=== PATIENT | male | born 1940 | race Caucasian/White ===

== ENCOUNTER → 2019-12-02 | Outpatient (CLI) | payer OTHER ==
[~2019-12-02] MED LIST: ADVIL PM CAPLE1 EACH PO; ASA81BEC PO; ASTAXANTHIN4 MG PO; B-12250 MCG PO; BISACODYL SUPP10 MG PO; CENTRUM SILVER1 EAC4 PO; CEPHALEXIN; CILOSTAZOL 100100 MG PO; CO Q-10400 MG PO; CO-ENZYME Q-1010 MG PO; COSAMIN ASU CA1 EACH PO; CRESTOR; CRESTOR10 MG PO; CRESTOR5 MG PO; DULCOLAX5 MG PO; EMERGEN-C 1,01000 MG PO; EZETIMIBE; FISH OIL 1,0001 EAC9 PO; FISH OIL 1,2001 EAC1 PO; FLOMAX0.4 MG PO; FOLIC ACID; HYALURONIC ACI1 EACH PO; HYDROCODON-ACE1 EAC7 PO; IBUPROFEN 200200 M1 PO; IRON18 M1 PO; KRILL OIL 3001 EACH PO; KRILL OIL500 MG PO; LISINOPRIL; LISINOPRIL20 MG PO; LOSARTAN POTAS100 MG PO; MIRALAX119 GM PO; MOTRIN 600 MG600 M1 PO; NICOTINAMIDE PO; NORCO 5-325 TA1 EACH PO; PERCOCET 5-3251 EACH PO; PLAVIX 75 MG TA75 M1 PO; PREVACID DIS; PREVACID30 MG PO; PROTONIX40 M2 PO; PTEROSTILBENE PO; SENNA-DOCUSATE1 EACH PO; SPIRONOLACTONE25 MG PO; SUPER B COMPLE1 EAC2 PO; VITAMIN B-121000 MC2 PO; ZETIA10 MG PO; ZOFRAN ODT4 MG PO; [UNRECOGNIZED DRUG - OTHER] PO
== END ==
LOC: LAB 09:31
PROVIDERS: ATTEND Student in an Organized Health Care Education/Training Program
DX: Z01.812 Encounter for preprocedural laboratory examination (principal); Z11.59 Encounter for screening for other viral diseases

== ENCOUNTER → 2019-12-16 | Outpatient (CLI) | payer OTHER ==
[~2019-12-16] VITALS: Ht 167.6 cm; Wt 72.6 kg
--- NOTE | ~2019-12-16 | P ---
[facility] [place] [address] PROCEDURE REPORT Name: TERELL CASTELLANOS JR Room #: REG Lester Noriega#: [id number] Admission: 12/16/19 Attend Phys: Pop Urena Discharge: Date of : 40 Report #: [id number] THIS REPORT FOR: cc: Lissy Vuong, Pop Joseph MD ~ CC: Pop Vuong DATE OF SERVICE: 12/16/2019 PROCEDURE PERFORMED: Esophagoscopy with ablation of Lord's esophagus. HISTORY OF PRESENT ILLNESS: The patient is a 79-year-old male who underwent a routine followup EGD for Lord's esophagus history on 10/24/2019 by myself in 8 cm segment of Lord's was again noted. Random biopsies were obtained every 2 cm. 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 We therefore discussed potentially proceeding with ablation in the office on followup 11/08/2019. The patient agrees. He presents today for his first ablation. He is on Protonix on a daily basis. He denies any heartburn or dysphagia. He has been holding his aspirin and Plavix for the last 5 days. DESCRIPTION OF PROCEDURE: The risks and benefits of the procedure were explained to the patient, those risks including but not limited to bleeding, perforation, the risk of sedation. He understood these risks and gave informed consent. Sedation was given using propofol per anesthesia. Next, using a standard Olympus upper endoscope, the scope was placed in the patient's mouth and advanced under direct vision through the esophagus, stomach and into the second portion of the duodenum. The larynx was normal in appearance. The upper esophagus was normal. Again in the mid to distal esophagus, a long segment of Lord's was noted from 30-38 cm. No evidence of inflammation. Upon entering the stomach, a large hiatal hernia was once again noted. Overall, the gastric mucosa was normal. The pylorus was normal and patent. The duodenal bulb, first and second portion were normal. The scope was then brought back up into the patient's mid esophagus and the esophagus was irrigated with 1% Mucomyst mixed with water solution. This was then aspirated away. The scope was then withdrawn and over the channel electrode ablation device was attached. The scope was reintroduced into the patient's esophagus and the Lord's tissue was targeted. The endoscope with the ablation electrode was positioned under direct visualization, so the ablation electrode was in contact with the Lord's tissue. Energy was applied twice at 40 W/cm squared and 12 joules/cm squared. The electrode was then moved to the next visible area of Lord's. All areas were treated that were visualized and then sloughed off the area with the [address] [address] PROCEDURE REPORT Name: TERELL CASTELLANOS Room #: REG [facility] Leann#: [id number] Admission: 12/16/19 Attend Phys: Pop Urena Discharge: Date of : 40 Report #: [id number] electrode device and areas were treated again per protocol. There was no bleeding noted after ablation. A total of 32 ablations were performed today. At this point, the scope was then withdrawn and the procedure terminated. The patient tolerated the procedure well. IMPRESSION: 1. An 8 cm segment of Lord's esophagus, status post ablation as described above today. 2. Large hiatal hernia. RECOMMENDATIONS: 1. Observe the patient post-procedure. 2. A script for Carafate t.i.d. for the next week was given and Lortab to be used on a p.r.n. basis if the patient has pain. The patient is also to continue his Protonix and then restart aspirin and Plavix tomorrow. Repeat upper endoscopy with ablation in 2 months' time. Thank you for allowing me to participate in his care. By: [id number] Pop Gutierrez MD /meet
== END | disposition home or self-care (01) ==
LOC: GI 12-07 10:27
PROVIDERS: ATTEND Specialist
DX: K22.710 Barrett's esophagus with low grade dysplasia (principal); K44.9 Diaphragmatic hernia without obstruction or gangrene; I10 Essential (primary) hypertension; E78.00 Pure hypercholesterolemia, unspecified; J43.9 Emphysema, unspecified; D64.9 Anemia, unspecified; K21.9 Gastro-esophageal reflux disease without esophagitis; Z98.890 Other specified postprocedural states; Z79.899 Other long term (current) drug therapy; Z11.59 Encounter for screening for other viral diseases; Z87.891 Personal history of nicotine dependence; Z95.1 Presence of aortocoronary bypass graft; Z88.8 Allergy status to other drugs, medicaments and biological substances
CPT/HCPCS: 62110; 62900